=== PATIENT | female | born 1990 | race Caucasian/White ===

== ENCOUNTER 2024-04-28 10:02 | Outpatient (CLI) | payer BC, SELFPAY ==
[2024-04-28 10:30] LABS: Basophils # 0.1 K/mm3 (0-0.2); Basophils % 0.6 % (0.1-2.0); Eosinophils # 0.4 K/mm3 (0.0-0.4); Eosinophils % 3.8 % (0.1-12.0); Hematocrit 43.6 % (37.0-47.0); Hemoglobin 14.7 g/dL (12.2-16.2); Lymphocytes # 3.9 K/mm3 (0.7-4.5); Lymphocytes % 39.4 % (10-50); Mean Corpuscular HGB Conc 33.7 g/dL (31.8-35.4); Mean Corpuscular Hemoglobin 30.7 pg (27.0-31.2); Mean Platelet Volume 9.8 fl (7.4-10.4); Monocytes # 0.9 K/mm3 (0.1-1.0); Monocytes % 9.2 % (1.7-9.3); Neutrophils # 4.6 K/mm3 (1.8-7.8); Neutrophils % 46.8 % (37.0-80.0); Platelet Count 313 K/mm3 (142-424); Red Blood Count 4.79 M/mm3 (4.20-5.40); Red Cell Distribution Width 11.8 % (11.5-17.5); White Blood Count 9.9 K/mm3 (4.8-10.8)
[2024-04-28 10:47] LABS: Alanine Aminotransferase 82 U/L (12-78); Albumin Level 4.5 g/dl (3.5-5.0); Albumin/Globulin Ratio 1.4 (1.1-1.8); Alkaline Phosphatase 69 U/L (38-126); Anion Gap 14.5 mEq/L (5-15); Aspartate Amino Transferase 52 U/L (14-36); Bilirubin,Total 0.4 mg/dl (0.2-1.3); Blood Urea Nitrogen 13 mg/dl (7-17); Calcium 9.7 mg/dl (8.4-10.2); Carbon Dioxide 27 mmol/L (22.0-30.0); Chloride 103 mmol/L (98-107); Estimated Glomerular Filt Rate 95 ml/min (>60); GFR (African American) 115 ML/MIN (>60); Globulin 3.2 g/dL (1.3-3.2); Glucose 79 mg/dl (74-100); Potassium 4.5 mmoL/L (3.5-5.1); Sodium 140 mmol/L (136-145); Total Protein,Serum 7.7 g/dl (6.3-8.2)
[2024-04-28 10:52] LABS: C-Reactive Protein 2.2 mg/L (0-4)
[2024-04-28 11:12] LABS: 25-OH Vitamin D, Total 44.9 ng/mL (30-100)
[2024-04-28 11:36] LABS: Vitamin B12 863 pg/mL (239-931)
[2024-04-28 11:46] LABS: Iron 148 ug/dL (37-170)
[2024-04-28 11:54] LABS: Total Iron Binding Capacity 353 ug/dL (265-497)
[2024-04-28 12:22] LABS: Ferritin 52.5 ng/ml (6.24-137)
[2024-04-28 12:56] LABS: Erythrocyte Sedimentation Rate 11 mm/hr (0-20)
[2024-04-30 20:08] LABS: QuantiFERON-TB Gold Plus Negative (Negative)
== END 2024-04-28 23:59 | disposition home or self-care (01) ==
LOC: LAB 10:07
PROVIDERS: PCP Nurse Practitioner Family; Visit Provider Nurse Practitioner Family
DX: K50.90 Crohn's disease, unspecified, without complications (principal); K30 Functional dyspepsia; R14.0 Abdominal distension (gaseous); R10.84 Generalized abdominal pain; R11.0 Nausea
CPT/HCPCS: 36415; 80053; 82306; 82607; 82728; 83540; 83550; 85025; 85651; 86140; 86480

== ENCOUNTER 2024-12-20 16:13 | Outpatient (CLI) | payer BC, SELFPAY ==
--- OUTSIDE RECORDS SUMMARY | 2024-12-20 16:15 | XMS_ITS | Clinical Summary ---
Author Organization [facility] Address [address] [place] [address] Care Team Providers Care Supervisor Mold Shop Name Role Phone Carlie Huitron APRN Primary Care Provider Allergies No known active allergies Medications Amaury, Deandre Pen, 40 MG/0.4ML Pen-injector Kit 4 Active amitriptyline (ELAVIL) 100 MG tablet Take 1 tablet by mouth Daily. 4 Active azelaic acid (AZELEX) 15 % gel 4 Active busPIRone (BUSPAR) 15 MG tablet 4 Active Cyanocobalamin 500 MCG/0.1ML solution 4 Active Diclofenac Potassium,Migrain e, 50 MG pack Take 1 tablet by mouth. 4 Active levocetirizine (XYZAL) 5 MG tablet 4 Active Simpesse 0.15-0.03 &0.01 MG 4 Active nitrofurantoin, macrocrystal-mono hydrate, (MACROBID) 100 MG capsule Take 1 capsule by mouth. Active omeprazole (priLOSEC) 20 MG capsule 4 Active propranolol (INDERAL) 20 MG tablet Take 1 tablet by mouth. 4 Active rizatriptan (MAXALT) 10 MG tablet Take 1 tablet by mouth. 4 Active Wegovy 2.4 MG/0.75ML solution auto-injector 4 Active SUMAtriptan (IMITREX) 100 MG tablet 4 Active promethazine (PHENERGAN) 25 MG tabletIndications :Nausea Take 1 tablet by mouth Every 6 (Six) Hours As Needed for Nausea or Vomiting. 30 tablet 1 4 Active Motegrity 2 MG tabletIndications :Chronic constipation Take 1 tablet by mouth Daily. 30 tablet 11 4 Active Active Problems No known active problems Family History Medical History Relation Name Comments Alcohol abuse Father Cirrhosis Father Colon polyps Father Alcohol abuse Maternal Grandfather Pancreatitis Maternal Grandfather Alcohol abuse Paternal Grandfather Relation Name Status Comments Father Alive Maternal Grandfather Alive Paternal Grandfather Social History Tobacco Use Types Packs/Day Years Used Date Smoking Tobacco: Never Smokeless Tobacco: Never Tobacco Cessation:Counseling Given: Not Answered Alcohol Use Standard Drinks/Week Comments Not Currently 0 (1 standard drink = 0.6 oz pur e alcohol) Abuse Screen Answer Date Recorded Unsafe at Home or Work/School Not on file Feels Threatened by Someone? Not on file 12/2022 Does Anyone Keep You from Co ntacting Others or Doint Things Outside the Home? Not on file 01/07/2023 Physical Sign of Abuse Present Not on file 1 Housing Stability Answer Date Recorded Current Living Arrangements Not on file 12/29 Potentially Unsafe Housing Conditions Not on jose e 01/07/2023 Family and Community Support Answer Dayne e Recorded Help with Day-to-Day Activities Not on file 01/07/2023 Lonely or Isolated Not on file 01/07/2023 Employment Answer Date Recorded Do you want help finding or keeping work or a chiquita b? Not on file 01/07/2023 Disabilities Answer Date Recorded Concentrating, Remembering, or Making Decisions Difficulty Not on file 01/07/2023 Doing Errands Independently Difficulty Not on fi le 01/07/2023 Education Answer Date Recorded Help with school or training? Not on file Preferred Language Not on file 01/07/2023 Comments Unknown Sex and Gender Information Value Date Recorded Sex Assigned at Not on file Legal Sex Female 1:46 PM EDT Gender Identity Not on file Sexual Orientation Not on file Last Filed Vital Signs Vital Sign Reading Time Taken Comments Blood Pressure - - Pulse - - Temperature - - Respiratory Rate - - Oxygen Saturation - - Inhaled Oxygen Concentration - - Weight 79.2 kg (174 lb 9.6 oz) 12/15/2023 8:34 A M EDT Height 157.5 cm (5' 2 ) 12/15/2023 8:34 AM EDT Body Mass Index 31.93 12/15/2023 8:34 AM EDT Plan of Treatment Health Maintenance Due Date Last Done Comments Annual Gynecologic Pelvic and Breast Exam 1989 PAP SMEAR 2010 ANNUAL PHYSICAL 12/15/2023 HEPATITIS C SCREENING 12/15/2023 INFLUENZA VACCINE 10/29/2024 12/13/2023, , 01/07/2022, Additional history exists TDAP/TD VACCINES (2 - Td or Tdap) 05/28/2025 05/29/2015 Pneumococcal Vaccine 0-49 Aged Out No longer eligible based on patient's age to complete this topic Insurance PPO Care Teams Supervisor Mold Shop Relationship Specialty Start Date End Date Carlie Huitron APRN [address] [place] [address] PCP - General Family Medicine 12/15/23
[2024-12-20 17:51] LABS: Iron 88 ug/dL (37-170)
[2024-12-20 18:00] LABS: Total Iron Binding Capacity 307 ug/dL (265-497)
[2024-12-20 18:10] LABS: 25-OH Vitamin D, Total 60.2 ng/mL (30-100)
[2024-12-20 18:27] LABS: Ferritin 46.6 ng/ml (6.24-137)
[2024-12-20 19:23] LABS: C-Reactive Protein 2.4 mg/L (0-4)
[2024-12-20 20:10] LABS: Vitamin B12 > 1000 pg/mL (239-931)
== END 2024-12-20 23:59 | disposition home or self-care (01) ==
LOC: LAB 16:14
PROVIDERS: PCP Nurse Practitioner Family; Visit Provider Nurse Practitioner Family
DX: K50.90 Crohn's disease, unspecified, without complications (principal)
CPT/HCPCS: 80145; 82306; 82397; 82607; 82728; 83540; 83550; 85651; 86140; 86480

== ENCOUNTER 2024-12-23 09:04 | Outpatient (CLI) | payer BC, SELFPAY ==
--- OUTSIDE RECORDS SUMMARY | 2024-12-23 09:06 | XMS_ITS | Encounter Summary ---
Author Organization [employer] ([place], [place], [place], [place]) Address [address] [place] [address] Care Team Providers Care Mission Systems Engineer Name Role Phone Carlie Huitron APRN Primary Care Provider [phone] Carlie Huitron APRN Primary Care Provider [phone] [phone] Reason for Visit * Reason Comments Medication Refill Encounter Details Date Type Department Care Team (Late st Contact Info) Description 07/25/2022 Refill [facility] Neurology - [facility] [address] [facility] [address] [place] [address] Karma Skelton MD [address] [facility] [address] [place] [address] Social History Tobacco Use Types Packs/Day Years Used Date Smoking Tobacco: Never Smokeless Tobacco: Never Alcohol Use Standard Drinks/Week Comments Not Currently 0 (1 standard drink = 0.6 oz pur e alcohol) Comments Unknown Sex and Gender Information Value Date Recorded Sex Assigned at Not on file Legal Sex Female 2:38 PM CDT Gender Identity Not on file Sexual Orientation Not on file COVID-19 Exposure Response Date Recorded In the last 10 days, have yo u been in contact with someone who was confirmed or suspected to have Coronavirus/COVID-19? No / Unsure 07/02/2022 4:58 PM EDT documented as of this encounter Plan of Treatment Not on file documented as of this encounter Visit Diagnoses Not on filedocumented in this encounter Care Teams Mission Systems Engineer Relationship Specialty Start Date End Date Carlie Huitron APRN [address] [facility] [address] [place] [address] PCP - General Nurse Practitioner 01/29/22 08/11/23 Carlie Huitron APRN [address] [facility] [address] [place] [address] PCP - General Nurse Practitioner 12/20/23 documented as of this encounter
--- OUTSIDE RECORDS SUMMARY | 2024-12-23 09:06 | XMS_ITS | Encounter Summary ---
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 Social History Tobacco Use Types Packs/Day Years Used Date Smoking Tobacco: Never Smokeless Tobacco: Never Alcohol Use Standard Drinks/Week Comments Not Currently 0 (1 standard drink = 0.6 oz pur e alcohol) Family and Community Support Answer Dayne e Recorded Help with Day to Day Activities Not on file 04/09/2023 Feeling Lonely or Isolated Not on file 04/09 Educational Attainment Answer Date Yossi rded Speak language other than Vincentian at home Not on file 04/09/2023 Want help with school or training Not on file 04/09/2023 Substance Use Answer Date Recorded Used prescription meds for non-medical reasons N ot on file 04/09/2023 Used illegal drugs past 12 months Not on file 04/09/2023 Comments Unknown Sex and Gender Information Value Date Recorded Sex Assigned at Not on file Legal Sex Female 2:38 PM CDT Gender Identity Not on file Sexual Orientation Not on file documented as of this encounter Plan of Treatment Not on file documented as of this encounter Visit Diagnoses Diagnosis Intractable chronic migraine without aura with status migrainosus Chronic migraine without aura, with intractable migraine, so stated, with status migrainosus documented in this encounter Care Teams Administrative Asst Relationship Specialty Start Date End Date Carlie Huitron, SCOREKEEPER PCP - General Nurse Practitioner 12/20/23 documented as of this encounter
--- OUTSIDE RECORDS SUMMARY | 2024-12-23 09:06 | XMS_ITS | Encounter Summary ---
Author Organization [employer] ([place], [place], [place], [place]) Address [address] [place] [address] Care Team Providers Care Stage Settings Painter Name Role Phone Carlie Huitron APRN Primary Care Provider [phone] [phone] Carlie Huitron APRN Primary Care Provider [phone] [phone] Reason for Referral * CAT Scan (Routine) - Closed Specialty Diagnoses / Procedures Referred By Amrik vu Referred To Contact Radiology Diagnoses Abdominal pain, unspecified abdominal location Procedures CT ABDOMEN/PELVIS WITH IV CONTRAST Standard Protocol Makayla Souza APRN [address] [facility] [address] [place] [id number] Phone: tel: fax: Referral ID Status Reason Start Date Expiration Date Visits Re quested Visits Authorized [id number] Closed 04/08/2022 10/05/2022 1 1 Encounter Details Date Type Department Care Team (Late st Contact Info) Description 04/08/2022 Outside Orders [facility] Central Scheduling [address] [place] [id number] Makayla Souza APRN [address] [address] Abdominal pain, unspecified abdominal location (Primary Dx) Social History Tobacco Use Types Packs/Day Years [...] on file documented as of this encounter Results * CT ABDOMEN/PELVIS WITH IV CONTRAST Standard Protocol (04/09/2022 9:58 AM EST) Anatomical Region Laterality Modality Abdomen, Pelvis Computed Tomogra phy (CT) 04/09/2022 12:0 0 PM EST Impressions 04/09/2022 12:08 PM EST No acute intra-abdominal process. Images reviewed, interpreted, and dictated by Dr. Tarun Freeman. Transcribed by Candice Brown PA-C. Narrative 04/09/2022 12:[address] SCAN OF THE ABDOMEN AND PELVIS WITH CONTRAST 04/09/2022 9:58 AM HISTORY: Right abdominal pain, Crohn's disease. COMPARISON: None. PROCEDURE: The patient was injected with IV contrast. Oral contrast was administered. Axial images were obtained from the lung bases to the pubic symphysis by computed tomography. This study was performed with techniques to keep radiation doses as low as reasonably achievable, (ALARA). Individualized dose reduction techniques using automated exposure control or adjustment of mA and/or kV according to the patient size were employed. FINDINGS: ABDOMEN: The lung bases are clear. The heart is normal in size. The liver is normal. The gallbladder is unremarkable. The spleen is unremarkable. No adrenal mass is present. The pancreas is normal. The kidneys are normal. The aorta is normal in caliber. There is no free fluid or adenopathy. PELVIS: The appendix is not identified. There is diverticulosis of the sigmoid colon. The uterus is uterus and the left. The urinary bladder is unremarkable. There is no significant free fluid or adenopathy. Procedure Note Odell Freeman MD - 04/09/2022 CT SCAN OF THE ABDOMEN AND PELVIS WITH CONTRAST 04/09/2022 9:58 AM HISTORY: Right abdominal pain, Crohn's disease. COMPARISON: None. PROCEDURE: The patient was injected with IV contrast. Oral contrast was administered. Axial images were obtained from the lung bases to the pubic symphysis by computed tomography. This study was performed with techniques to keep radiation doses as low as reasonably achievable, (ALARA). Individualized dose reduction techniques using automated exposure control or adjustment of mA and/or kV according to the patient size were employed. FINDINGS: ABDOMEN: The lung bases are clear. The heart is normal in size. The liver is normal. The gallbladder is unremarkable. The spleen is unremarkable. No adrenal mass is present. The pancreas is normal. The kidneys are normal. The aorta is normal in caliber. There is no free fluid or adenopathy. PELVIS: The appendix is not identified. There is diverticulosis of the sigmoid colon. The uterus is uterus and the left. The urinary bladder is unremarkable. There is no significant free fluid or adenopathy. IMPRESSION: No acute intra-abdominal process. Images reviewed, interpreted, and dictated by Dr. Tarun Freeman. Transcribed by Candice Brown PA-C. Makayla Souza APRN IMG CT ORDERABLES Final Resu lt documented in this encounter Visit Diagnoses Diagnosis Abdominal pain, unspecified abdominal location- Primary Abdominal pain, unspecified abdominal location documented in this encounter Care Teams Stage Settings Painter Relationship Specialty Start Date End Date Carlie Huitron APRN [address] [facility] [address] [place] [address] PCP - General Nurse Practitioner 01/29/22 08/11/23 Carlie Huitron APRN [address] [facility] [address] [place] [address] PCP - General Nurse Practitioner 12/20/23 documented as of this encounter
--- OUTSIDE RECORDS SUMMARY | 2024-12-23 09:06 | XMS_ITS | Encounter Summary ---
Author Organization [employer] ([place], [place], [place], [place]) Address [address] [place] [address] Care Team Providers Care Manager Retention Name Role Phone Carlie Huitron APRN Primary Care Provider [phone] Reason for Visit * Reason Comments Medication Refill Encounter Details Date Type Department Care Team (Late st Contact Info) Description 04/26/2024 Refill [facility] Neurology - [facility] [address] [facility] [address] [place] [address] Karma Skelton MD [address] [facility] [address] [place] [address] Intractable chronic migraine without aura [...] Date Yossi rded Speak language other than Solomon Islander at home Not on file 04/09/2023 Want [...] migrainosus documented in this encounter Care Teams Manager Retention Relationship Specialty Start Date End Date Carlie Huitron, BILLBOARD POSTER HELPER PCP - General Nurse Practitioner 12/20/23 documented as of this encounter
--- OUTSIDE RECORDS SUMMARY | 2024-12-23 09:06 | XMS_ITS | Encounter Summary ---
Author Organization [employer] ([place], [place], [place], [place]) Address [address] [place] [address] Care Team Providers Care Jacquard Card Lacer Name Role Phone Carlie Huitron APRN Primary Care Provider [phone] [phone] Encounter Details Date Type Department Care Team (Latest Contact Info) Description 12/20/2023 Outside Orders [facility] Admitting [address] [place] [address] [facility], Provider Not In The System, [place] [address] Crohn's disease without complication, unspecified gastrointestinal tract location (HCC) (Primary Dx) Social History Tobacco Use Types [...] Date Yossi rded Speak language other than Ecuadorean at home Not on file 04/09/2023 Want [...] documented as of this encounter Results * Calprotectin, Fecal by Immunoassay(SENDOUT) (12/20/2023 12:48 PM EDT) Calprotectin, Fecal 33 <=49 ug/g 12/24/2023 1:19 PM EDT [facility] Comment: REFERENCE INTERVAL: Calprotectin, Fecal by Immunoassay Less than 50 ug/g.........Normal 50-120 ug/g...............Borderline elevated, test should be re-evaluated in 4-6 weeks. 121 ug/g or greater.......Elevated Performed By: [facility] [address] [place] [address] Senior Research Project Manager: Alfredo Feliciano MD, PhD CLIA Number: [id number] Stool 12/20/2023 12:4 8 PM EDT 12/20/2023 12:51 PM EDT us Provider Not In The System [facility] - GENERAL ORDERABLES Final Result [facility] [address] [place] [address], [facility] [phone] documented in this encounter Visit Diagnoses Diagnosis Crohn's disease without complication, unspecified gastrointestinal tract location (HCC)- Primary documented in this encounter Care Teams Jacquard Card Lacer Relationship Specialty Start Date End Date Carlie Huitron, YOON PCP - General Nurse Practitioner 12/20/23 documented as of this encounter
--- OUTSIDE RECORDS SUMMARY | 2024-12-23 09:06 | XMS_ITS | Referral Summary ---
Author Organization [employer] ([place], [place], [place], [place]) Address [address] [place] [address] Care Team Providers Care Excavating Machine Operator Name Role Phone Carlie Huitron APRN Primary Care Provider [phone] [phone] Allergies No known active allergies Medications adalimumab (HUMIRA,CF, PEN [id number] HS SUBQ) Inject subcutaneously. Active buspirone HCl (BUSPAR ORAL) Take by mouth. A ctive diclofenac potassium (CAMBIA ORAL) Take by mouth. A ctive Motegrity 2 mg Tab Take 2 mg by mouth. 2 Active Lactobac no.41/Bifidobact no.7 (PROBIOTIC-10 ORAL) Take by mouth. Activ e multivitamin per tablet Take 1 tablet by mouth in the morning. Active biotin 10 mg Tab Take by mouth. Active Wegovy 2.4 mg/0.75 mL PnIj Inject subcutaneously. 3 Active nitrofurantoin, macrocrystal-mon ohydrate, (MACROBID) 100 MG capsule Take 1 capsule (100 mg total) by mouth as needed. Active rizatriptan (Maxalt) 10 MG tabletIndication s:Intractable chronic migraine without aura with status migrainosus Take 1 tablet (10 mg total) by mouth as needed (at onset of migraine, may repeat q2h x 1) Do NOT exceed thirty (30) mg in 24 hours.. 9 tablet 6 4 Active omeprazole (PriLOSEC) 10 MG capsule Active atogepant (Qulipta) 60 mg tabIndications:I ntractable chronic migraine without aura with status migrainosus Take 60 mg by mouth daily. 30 tablet 5 4 Active cyanocobalamin, vitamin B-12, (Nascobal) 500 mcg/spray spryIndications: B12 deficiency 1 spray by intraNASAL route once a week. 12 each 3 5 Active levocetirizine (XYZAL) 2.5 mg/5 mL solution Take 5 mLs (2.5 mg total) by mouth every evening. Active diclofenac potassium 50 mg pwpkIndications: Intractable chronic migraine without aura with status migrainosus Take 1 packet by mouth as needed (At onset of migraine, may repeat every 6 hours x 1). 18 packet 11 5 Active propranoloL (INDERAL) 20 MG tabletIndication s:Intractable chronic migraine without aura with status migrainosus TAKE (1) TABLET BY MOUTH TWICE DAILY 180 tablet 1 5 Active atogepant (Qulipta) 60 mg tabIndications:I ntractable chronic migraine without aura with status migrainosus Take 60 mg by mouth daily. 30 tablet 5 5 Active amitriptyline (ELAVIL) 100 MG tabletIndication s:Intractable chronic migraine without aura with status migrainosus Take 1 tablet (100 mg total) by mouth every evening. 90 tablet 1 5 Active Active Problems Problem Noted Date Diagnosed Date Crohn's colitis 04/14/2024 Overview (04/14/2024): 4.6.23 Social History Tobacco Use Types Packs/Day Years [...] Date Yossi rded Speak language other than French at home Not on file 04/09/2023 Want [...] Sign Reading Time Taken Comments Blood Pressure 136/92 12/31/2023 8:59 AM EDT Pulse 94 12/31/2023 8:59 AM EDT Temperature - - Respiratory Rate 19 11/19/2021 1:31 PM EDT Oxygen Saturation - - Inhaled Oxygen Concentration - - Weight 90.7 kg (200 lb) 07/09/2024 8:07 AM EDT Height 157.5 cm (5' 2 ) 12/31/2023 8:59 AM EDT Body Mass Index 36.58 12/31/2023 8:59 AM EDT Plan of Treatment Not on file Insurance BLUE CROSS/BLUE SHIELD Care Teams Excavating Machine Operator Relationship Specialty Start Date End Date Carlie Huitron, YOON PCP - General Nurse Practitioner 12/20/23
--- OUTSIDE RECORDS SUMMARY | 2024-12-23 09:06 | XMS_ITS | Clinical Summary ---
Author Organization [employer] ([place], [place], [place], [place]) Address [address] [place] [address] Care Team Providers Care Associate Professor Of Philosophy Name Role Phone Carlie Huitron APRN Primary Care Provider [phone] [phone] Allergies No known active allergies Medications adalimumab (HUMIRA,CF, PEN [id number] HS SUBQ) Inject subcutaneously. Active buspirone HCl [...] Date Crohn's colitis 04/14/2024 Overview (04/14/2024): 4.6.23 Family History Medical History Relation Name Comments Alcohol abuse Father Michel Gamble Drug abuse Father Michel Gamble Heart disease Father Michel Gamble Alcohol abuse Maternal Grandfather Hakan Stacie Heart disease Maternal Grandfather Hakan Stacie Stroke Maternal Grandfather Hakan Stacie Cancer Maternal Grandmother Mariah Stacie Migraines Mother Sonia [place] Alcohol abuse Paternal Grandfather Kyler Gamble Heart disease Paternal Grandfather Kyler Gamble Stroke Paternal Grandfather Kyler Gamble Heart disease Paternal Grandmother Kasia Tye Relation Name Status Comments Father Michel Gamble Maternal Grandfather Hakan Stacie Maternal Grandmother Mariah Stacie Mother Sonia [place] Paternal Grandfather Kyler Gamble Paternal Grandmother Kasia Gamble Social History Tobacco Use Types Packs/Day Years [...] Date Yossi rded Speak language other than Tristanian at home Not on file 04/09/2023 Want [...] 12/31/2023 8:59 AM EDT Plan of Treatment Health Maintenance Due Date Last Done Comments Depression Screening (12+) 2001 HIV Screening 01/04/2004 Hepatitis C Screening 2007 Lipid Panel 2009 Pap Smear 2010 COVID-19 VACCINE ( - 2023-2 5 season) 2024 Influenza Vaccine (#1) 2024 Tobacco Cessation Counseling and Screening (12+) 12/30/2024 12/31/2023 DTAP/TDAP/TD VACCINES (2 - T d or Tdap) 05/28/2025 05/29/2015 Pneumococcal Vaccine: 0-49 Years Aged Out No longer eligible based on patient's age to complete this topic Insurance BLUE CROSS/BLUE SHIELD Care Teams Associate Professor Of Philosophy Relationship Specialty Start Date End Date Carlie Huitron, CLINICAL RESEARCH DIRECTOR PCP - General Nurse Practitioner 12/20/23
--- OUTSIDE RECORDS SUMMARY | 2024-12-23 09:06 | XMS_ITS | Encounter Summary ---
Author Organization [employer] ([place], [place], [place], [place]) Address [address] [place] [address] Care Team Providers Care Sail Finisher Machine Name Role Phone Carlie Huitron APRN Primary Care Provider [phone] Carlie Huitron APRN Primary Care Provider [phone] [phone] Encounter Details Date Type Department Care Team (Late st Contact Info) Description 07/02/2022 Outside Orders [facility] Admitting [address] [place] [address] Makayla Sozua APRN [address] [facility] [address] [place] [address] Inguinal pain, unspecified laterality (Primary Dx) Social History Tobacco Use Types [...] documented as of this encounter Results * Comprehensive metabolic panel (07/02/2022 5:24 PM EDT) Sodium 136 136 - 145 meq/L 07/02/2022 6:44 PM EDT [facility] Potassium 4.1 3.5 - 5.1 meq/L 07/02/2022 6:44 PM EDT [facility] Chloride 102 98 - 107 meq/L 07/02/2022 6:44 PM EDT [facility] CO2 25 21 - 32 meq/L 07/02/2022 6:44 PM EDT [facility] Calcium 8.8 8.5 - 10.1 mg/dL 07/02/2022 6:44 PM EDT [facility] Glucose 80 70 - 99 mg/dL 07/02/2022 6:44 PM EDT [facility] BUN 17 7 - 18 mg/dL 07/02/2022 6:44 PM EDT [facility] Creatinine 1.03 0.55 - 1.10 mg/dL 07/02/2022 6:44 PM EDT [facility] BUN/Creatinine 17 07/02/2022 6:44 PM EDT [facility] Albumin 3.5 3.4 - 5.0 g/dL 07/02/2022 6:44 PM EDT [facility] Alkaline Phosphatase 67 46 - 116 U/L 07/02/2022 6:44 PM EDT [facility] ALT 60 12 - 78 U/L 07/02/2022 6:44 PM EDT [facility] AST 31 15 - 37 U/L 07/02/2022 6:44 PM EDT [facility] Total Bilirubin 0.2 0.2 - 1.0 mg/dL 07/02/2022 6:44 PM EDT [facility] Protein, Total 8.0 6.4 - 8.2 gm/dL 07/02/2022 6:44 PM EDT [facility] Anion Gap 13 07/02/2022 6:44 PM EDT [facility] A/G Ratio 0.8 07/02/2022 6:44 PM EDT [facility] Globulin 4.5 g/dL 07/02/2022 6:44 PM EDT [facility] Osmolality Calc 272.5 6:44 PM EDT [facility] eGFR (mL/min/1.73m2) >60 >=60 mL/min/1.7 3m2 07/02/2022 6:44 PM EDT [facility] Comment:ESTIMATED GFR IS NOT ACCURATE CREATININE CLEARANCE IN PREDICTING GLOMERULAR FILTRATION RATE. ESTIMATED GFR IS NOT APPLICABLE FOR DIALYSIS PATIENTS. Blood Venipuncture / Unknown 07/02/2022 5:24 PM EDT 07/02/2022 5:39 PM EDT Narrative [facility] - 07/02/2022 6:44 PM EDT As of 06-14-2022 date, reported eGFR is based on the CKD-EPI 2020 equation that does not use a race coefficient. Laboratory Report for eGFR of 45-59 mL/min/1.73m2- For eGFR of 45-59 mL/min/1.73m2, NKF KDOQI and KDIGO guidelines recommend one - time confirmation of eGFR calculated using both creatinine and cystatin C. Cystatin C is recommended in the outpatient patient setting for purposes of confirming chronic kidney disease, rather than in the acute setting for acute kidney injury or failure. Makayla Souza APRN LAB BLOOD ORDERABLES Final R esult [facility] [address] [place] [address], [facility] [phone] * Vitamin D, 25-Hydroxy (07/02/2022 5:24 PM EDT) Vitamin D 25-Hydroxy 54.9 30 - 100, >100 Toxic ng/mL 07/02/2022 6:44 PM EDT [facility] Blood Venipuncture / Unknown 07/02/2022 5:24 PM EDT 07/02/2022 5:39 PM EDT Narrative [facility] - 07/02/2022 6:44 PM EDT <20 Deficient 20 to 29 Insufficient 30 to 100 Sufficient >100 Toxic Biotin supplements can cause clinically significant incorrect lab results. The FDA has seen an increase in the number of adverse events related to biotin interference with lab tests. Makayla Souza APRN LAB BLOOD ORDERABLES Final R esult Performing Organization Address City/[facility]/ZIP Co de Phone Number [facility] [address] [place] [address] * Vitamin B12 (07/02/2022 5:24 PM EDT) Vitamin B12 563 193 - 986 pg/mL 07/02/2022 6:44 PM EDT [facility] Blood Venipuncture / Unknown 07/02/2022 5:24 PM EDT 07/02/2022 5:39 PM EDT Makayla Souza [facility] LAB BLOOD ORDERABLES Final R esult Performing Organization Address [facility] Co de Phone Number [facility] [address] [place] [address] * (ABNORMAL) Sedimentation rate (07/02/2022 5:24 PM EDT) Pathologist [facility] Sed Rate 43(H) 0 - 20 mm/HR 07/02/2022 6:58 PM EDT [facility] Blood Venipuncture / Unknown 07/02/2022 5:24 PM EDT 07/02/2022 5:39 PM EDT Makayla Souza [facility] LAB BLOOD ORDERABLES Final R esult Performing Organization Address City/[facility] Co de Phone Number [facility] [address] [place] [address] * Iron and TIBC (07/02/2022 5:24 PM EDT) Iron 69.0 50.0 - 175.0 ug/dL 07/02/2022 6:11 PM EDT [facility] TIBC 355 250 - 450 ug/dL 07/02/2022 6:11 PM EDT [facility] % Saturation 19 % 07/02/2022 6:11 PM EDT [facility] UIBC 286 07/02/2022 6:11 PM EDT [facility] Blood Venipuncture / Unknown 07/02/2022 5:24 PM EDT 07/02/2022 5:39 PM EDT us Makayla Harley RETAIL BUSINESS DEVELOPMENT MANAGER LAB BLOOD ORDERABLES Final R esult [facility] [address] [phone] * Ferritin (07/02/2022 5:24 PM EDT) Ferritin 66.00 8.00 - 388.00 ng/mL 07/02/2022 6:44 PM EDT [facility] Blood Venipuncture / Unknown 07/02/2022 5:24 PM EDT 07/02/2022 5:39 PM EDT Makayla Harley RETAIL BUSINESS DEVELOPMENT MANAGER LAB BLOOD ORDERABLES Final R esult [facility] [address] [phone] * C-Reactive Protein (07/02/2022 5:24 PM EDT) CRP 0.60 0.20 - 0.90 mg/dL 07/02/2022 6:44 PM EDT [facility] Blood Venipuncture / Unknown 07/02/2022 5:24 PM EDT 07/02/2022 5:39 PM EDT Makayla Harley RETAIL BUSINESS DEVELOPMENT MANAGER LAB BLOOD ORDERABLES Final R esult [facility] [address] [place] [address], [facility] [phone] * (ABNORMAL) CBC with automated diff (07/02/2022 5:24 PM EDT) WBC 11.7(H) 4.8 - 10.8 K/ L 07/02/2022 5:47 PM EDT [facility] RBC 4.57 3.50 - 5.20 M/ L 07/02/2022 5:47 PM EDT [facility] Hemoglobin 13.6 11.7 - 15.8 GM/DL 07/02/2022 5:47 PM EDT [facility] Hematocrit 41.2 35.0 - 47.0 % 07/02/2022 5:47 PM EDT [facility] MCV 90 81 - 101 fL 07/02/2022 5:47 PM EDT [facility] MCH 29.8 27.0 - 34.0 pg 07/02/2022 5:47 PM EDT [facility] MCHC 33.0 32.0 - 36.0 GM/DL 07/02/2022 5:47 PM EDT [facility] RDW 11.8 11.5 - 14.5 % 07/02/2022 5:47 PM EDT [facility] Platelets 295 150 - 400 K/CU MM 07/02/2022 5:47 PM EDT [facility] MPV 10.4 9.4 - 12.4 fL 07/02/2022 5:47 PM EDT [facility] Nucleated Red Blood Cell 0.0 0 - 0.2 % 07/02/2022 5:47 PM EDT [facility] % Neutros 46 37 - 80 % 07/02/2022 5:47 PM EDT [facility] % Lymphs 42 10 - 50 % 07/02/2022 5:47 PM EDT [facility] % Monos 8 5 - 13 % 07/02/2022 5:47 PM EDT [facility] % Eos 4 0 - 7 % 07/02/2022 5:47 PM EDT [facility] % Baso 1 0 - 3 % 07/02/2022 5:47 PM EDT [facility] NRBC Absolute 0.00 0 - 0.12 K/ul 07/02/2022 5:47 PM EDT [facility] # Neutros 5.30 2.00 - 6.90 K/ L 07/02/2022 5:47 PM EDT [facility] # Lymphs 4.89(H) 0.60 - 3.40 K/ L 07/02/2022 5:47 PM EDT [facility] # Monos 0.91(H) 0.00 - 0.90 K/ L 07/02/2022 5:47 PM EDT [facility] # Eos 0.47 0.00 - 0.70 K/ L 07/02/2022 5:47 PM EDT [facility] # Baso 0.06 0.00 - 0.20 K/ L 07/02/2022 5:47 PM EDT [facility] Immature Granulocytes-Re lative 0.30(H) 0.00 - 0.00 % 07/02/2022 5:47 PM EDT [facility] # IG 0.03(H) 0.00 - 0.00 K/uL 07/02/2022 5:47 PM EDT [facility] Blood Venipuncture / Unknown 07/02/2022 5:24 PM EDT 07/02/2022 5:39 PM EDT Narrative [facility] - 07/02/2022 5:47 PM EDT When CBC w/ Auto Diff is ordered the lab will add a Manual Differential as a quality check at no additional charge if: Lymphocytes greater than seventy five percent with normal or increased WBC Monocytes greater than Fifteen percent Basophil greater than four percent Bands >10% or several immature myeloids are seen on scan Blast? Flag noted Atypical Lymph flag noted us Makayla Souza APRN LAB BLOOD ORDERABLES Final R esult [facility] [address] [place], [place] [id number] [place] [address] documented in this encounter Visit Diagnoses Diagnosis Inguinal pain, unspecified laterality- Primary documented in this encounter Care Teams Sail Finisher Machine Relationship Specialty Start Date End Date Carlie Huitron APRN [address] [place] [address] PCP - General Nurse Practitioner 01/29/22 08/11/23 Carlie Hiutron APRN [address] [place] [address] PCP - General Nurse Practitioner 12/20/23 documented as of this encounter
--- OUTSIDE RECORDS SUMMARY | 2024-12-23 09:06 | XMS_ITS | Encounter Summary ---
Author Organization [employer] ([place], [place], [place], [place]) Address [address] [place] [address] Care Team Providers Care Visual Education Teacher Name Role Phone Carlie Huitron APRN Primary Care Provider [phone] Carlie Huitron APRN Primary Care Provider [phone] Encounter Details Date Type Department Care Team (Latest Contact Info) Description 01/29/2022 Outside Orders [facility] Admitting [address] [place] [address] Makayla Souza APRN [address] [facility] [address] [place] [address] Crohn's disease with complication, unspecified gastrointestinal tract location (HCC) (Primary [...] on file documented as of this encounter Procedures Procedure Name Priority Date/Time Associated Diagnosis Comments C-REACTIVE PROTEIN Routine 01/29/2022 5: 26 PM EDT Crohn's disease with complication, unspecified gastrointestinal tract location (HCC) VITAMIN D, 25-HYDROXY Routine 01/29/2022 5:26 PM EDT Crohn's disease with complication, unspecified gastrointestinal tract location (HCC) IRON, SERUM Routine 01/29/2022 5:26 PM EDT Crohn's disease with complication, unspecified gastrointestinal tract location (HCC) VITAMIN B12 Routine 01/29/2022 5:26 PM EDT Crohn's disease with complication, unspecified gastrointestinal tract location (HCC) COMPREHENSIVE METABOLIC PANEL Routine 01/29/2022 5:26 PM EDT Crohn's disease with complication, unspecified gastrointestinal tract location (HCC) SEDIMENTATION RATE Routine 01/29/2022 5: 25 PM EDT Crohn's disease with complication, unspecified gastrointestinal tract location (HCC) documented in this encounter Results * (ABNORMAL) Comprehensive metabolic panel (01/29/2022 5:26 PM EDT) Sodium 137 136 - 145 meq/L 01/29/2022 10:19 PM EDT [facility] Potassium 3.6 3.5 - 5.1 meq/L 01/29/2022 10:19 PM EDT [facility] Chloride 104 98 - 107 meq/L 01/29/2022 10:19 PM EDT [facility] CO2 23 21 - 32 meq/L 01/29/2022 10:19 PM EDT [facility] Calcium 8.8 8.5 - 10.1 mg/dL 01/29/2022 10:19 PM EDT [facility] Glucose 138(H) 70 - 99 mg/dL 01/29/2022 10:19 PM EDT [facility] BUN 8 7 - 18 mg/dL 01/29/2022 10:19 PM EDT [facility] Creatinine 0.85 0.55 - 1.10 mg/dL 01/29/2022 10:19 PM EDT [facility] BUN/Creatinine 9 01/29/2022 10:19 PM EDT [facility] Albumin 3.6 3.4 - 5.0 g/dL 01/29/2022 10:19 PM EDT [facility] Alkaline Phosphatase 69 46 - 116 U/L 01/29/2022 10:19 PM EDT [facility] ALT 45 12 - 78 U/L 01/29/2022 10:19 PM EDT [facility] AST 27 15 - 37 U/L 01/29/2022 10:19 PM EDT [facility] Total Bilirubin 0.2 0.2 - 1.0 mg/dL 01/29/2022 10:19 PM EDT [facility] Protein, Total 7.7 6.4 - 8.2 gm/dL 01/29/2022 10:19 PM EDT [facility] Anion Gap 14 01/29/2022 10:19 PM EDT [facility] A/G Ratio 0.9 01/29/2022 10:19 PM EDT [facility] Globulin 4.1 g/dL 01/29/2022 10:19 PM EDT [facility] Osmolality Calc 274.3 2 10:19 PM EDT [facility] eGFR (mL/min/1.73m2) >60 >=60 mL/min/1.7 3m2 01/29/2022 10:19 PM EDT [facility] Comment:ESTIMATED GFR IS NOT ACCURATE CREATININE CLEARANCE IN PREDICTING GLOMERULAR FILTRATION RATE. ESTIMATED GFR IS NOT APPLICABLE FOR DIALYSIS PATIENTS. eGFR Non (mL/min/1.73m2) >60 >=60 mL/min/1.7 3m2 01/29/2022 10:19 PM EDT [facility] Comment:ESTIMATED GFR IS NOT ACCURATE CREATININE CLEARANCE IN PREDICTING GLOMERULAR FILTRATION RATE. ESTIMATED GFR IS NOT APPLICABLE FOR DIALYSIS PATIENTS. Blood Venipuncture / Unknown 01/29/2022 5:26 PM EDT 01/29/2022 5:26 PM EDT us Makayla Souza FIRE PRODUCTION OPERATOR LAB BLOOD ORDERABLES Final R esult [facility] [address] [place] [address] * Vitamin D, 25-Hydroxy (01/29/2022 5:26 PM EDT) Vitamin D 25-Hydroxy 61.1 30 - 100, >100 Toxic ng/mL 01/29/2022 10:42 PM EDT [facility] Blood Venipuncture / Unknown 01/29/2022 5:26 PM EDT 01/29/2022 5:26 PM EDT Narrative [facility] - 01/29/2022 10:42 PM EDT <20 Deficient 20 to 29 Insufficient 30 to 100 Sufficient >100 Toxic Biotin supplements can cause clinically significant incorrect lab results. The FDA has seen an increase in the number of adverse events related to biotin interference with lab tests. Makayla Souza APRN LAB BLOOD ORDERABLES Final R esult [facility] [address] [place] [address] * Vitamin B12 (01/29/2022 5:26 PM EDT) Pathologist [facility] Vitamin B12 287 193 - 986 pg/mL 01/29/2022 11:24 PM EDT [facility] Blood Venipuncture / Unknown 01/29/2022 5:26 PM EDT 01/29/2022 5:26 PM EDT Makayla Souza [facility] LAB BLOOD ORDERABLES Final R esult [facility] [address] [place] [address] * Iron, serum (01/29/2022 5:26 PM EDT) Iron 61.0 50.0 - 175.0 ug/dL 01/29/2022 10:42 PM EDT [facility] Blood Venipuncture / Unknown 01/29/2022 5:26 PM EDT 01/29/2022 5:26 PM EDT Makayla Harley [employer]EN[employer] LAB BLOOD ORDERABLES Final R esult [facility] [address] [place] [address] * C-Reactive Protein (01/29/2022 5:26 PM EDT) CRP 0.60 0.20 - 0.90 mg/dL 01/29/2022 10:19 PM EDT [facility] Blood Venipuncture / Unknown 01/29/2022 5:26 PM EDT 01/29/2022 5:26 PM EDT Makayla Harley [employer] LAB BLOOD ORDERABLES Final R esult [facility] [address] [place] [address] * Sedimentation rate (01/29/2022 5:25 PM EDT) Sed Rate 9 0 - 20 mm/HR 01/29/2022 11:15 PM EDT [facility] Hematocrit 42.1 % 01/29/2022 11:15 PM EDT [facility] Blood Venipuncture / Unknown 01/29/2022 5:25 PM EDT 01/29/2022 5:26 PM EDT Makayla Harley [employer] LAB BLOOD ORDERABLES Final R esult [facility] [address] [place] [address] documented in this encounter Visit Diagnoses Diagnosis Crohn's disease with complication, unspecified gastrointestinal tract location (HCC)- Primary documented in this encounter Care Teams Visual Education Teacher Relationship Specialty Start Date End Date Carlie Huitron, YOON [address] [facility] [address] [place] [address] PCP - General Nurse Practitioner 01/29/22 08/11/23 Carlie Huitron APRN [address] [facility] [address] [place] [address] PCP - General Nurse Practitioner 12/20/23 documented as of this encounter
--- OUTSIDE RECORDS SUMMARY | 2024-12-23 09:06 | XMS_ITS | Encounter Summary ---
Author Organization [employer] ([place], [place], [place], [place]) Address [address] [place] [address] Care Team Providers Care Price Checker Name Role Phone Carlie Huitron APRN Primary Care Provider [phone] Carlie Huitron APRN Primary Care Provider [phone] Reason for Visit * Reason Comments Medication Refill Encounter Details Date Type Department Care Team (Late st Contact Info) Description 06/16/2023 Refill [facility] Neurology - [facility] [place] [address] [facility] [address] [place] [address] Karma Skelton MD [address] [facility] [address] [place] [address] 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
--- OUTSIDE RECORDS SUMMARY | 2024-12-23 09:06 | XMS_ITS | Clinical Summary ---
Author Organization [facility] Address [address] [place] [address] Care Team Providers Care Letter Of Credit Clerk Name Role Phone Carlie Huitron APRN Primary [...] complete this topic Insurance PPO Care Teams Letter Of Credit Clerk Relationship Specialty Start Date End Date Carlie Huitron APRN [address] [place] [address] PCP - General Family Medicine 12/15/23
--- OUTSIDE RECORDS SUMMARY | 2024-12-23 09:06 | XMS_ITS | Encounter Summary ---
Author Organization [employer] ([place], [place], [place], [place]) Address [address] [place] [address] Care Team Providers Care Piping Engineer Name Role Phone Carlie Huitron APRN Primary Care Provider [phone] Encounter Details Date Type Department Care Team (Latest Contact Info) Description 09/09/2024 Outside Orders [facility] Admitting [address] [place] [address] Makayla Souza APRN [address] [facility] [address] [place] [address] Crohn's disease without complication, unspecified gastrointestinal tract location (HCC) (Primary Dx) Social History Tobacco Use Types Packs/Day Years Used Date Smoking Tobacco: Never Smokeless Tobacco: Never Alcohol Use Standard Drinks/Week Comments Not Currently 0 (1 standard drink = 0.6 oz pur e alcohol) Family and Community Support Answer Dayen e Recorded Help with Day to Day Activities Not on file 04/09/2023 Feeling Lonely or Isolated Not on file 04/09 Educational Attainment Answer Date Yossi rded Speak language other than Zambian at home Not on file 04/09/2023 Want [...] documented as of this encounter Results * C-Reactive Protein (09/09/2024 5:43 PM EDT) CRP 0.07 0.05 - 0.25 mg/dL 09/09/2024 6:56 PM EDT [facility] Blood Venipuncture / Unknown 09/09/2024 5:43 PM EDT 09/09/2024 6:01 PM EDT Makayla Souza [employer] LAB BLOOD ORDERABLES Final R esult [facility] [address] [place] [address] * Vitamin B12 (09/09/2024 5:43 PM EDT) Vitamin B12 560 193 - 986 pg/mL 09/09/2024 6:56 PM EDT [facility] Blood Venipuncture / Unknown 09/09/2024 5:43 PM EDT 09/09/2024 6:01 PM EDT Makayla Harley [employer] LAB BLOOD ORDERABLES Final R esult [facility] [address] [place] [address] * Iron and TIBC (09/09/2024 5:43 PM EDT) Iron 79 50.0 - 175.0 ug/dL 09/09/2024 6:34 PM EDT [facility] TIBC 318 250 - 450 ug/dL 09/09/2024 6:34 PM EDT [facility] % Saturation 25 % 09/09/2024 6:34 PM EDT [facility] UIBC 239 09/09/2024 6:34 PM EDT [facility] Blood Venipuncture / Unknown 09/09/2024 5:43 PM EDT 09/09/2024 6:00 PM EDT Makayla Harley [employer] LAB BLOOD ORDERABLES Final R esult Performing Organization Address City/[facility]/ZIP Co de Phone Number [facility] [address] [place] [address] * Ferritin (09/09/2024 5:43 PM EDT) Pathologist [facility] Ferritin 85.00 8.00 - 388.00 ng/mL 09/09/2024 6:56 PM EDT [facility] Blood Venipuncture / Unknown 09/09/2024 5:43 PM EDT 09/09/2024 6:01 PM EDT Makayla Harley [employer] LAB BLOOD ORDERABLES Final R [facility] Performing Organization Address City/[facility]/ZIP Co de Phone Number [facility] [address] [place] [address] * (ABNORMAL) CBC with automated diff (09/09/2024 5:43 PM EDT) Pathologist [facility] WBC 11.9(H) 4.8 - 10.8 K/ L 09/09/2024 6:22 PM EDT [facility] RBC 4.76 3.50 - 5.20 M/ L 09/09/2024 6:22 PM EDT [facility] Hemoglobin 14.3 11.7 - 15.8 GM/DL 09/09/2024 6:22 PM EDT [facility] Hematocrit 43.0 35.0 - 47.0 % 09/09/2024 6:22 PM EDT [facility] MCV 90 81 - 101 fL 09/09/2024 6:22 PM EDT [facility] MCH 30.0 27.0 - 34.0 pg 09/09/2024 6:22 PM EDT [facility] MCHC 33.3 32.0 - 36.0 GM/DL 09/09/2024 6:22 PM EDT [facility] RDW 11.6 11.5 - 14.5 % 09/09/2024 6:22 PM EDT [facility] Platelets 329 150 - 400 K/CU MM 09/09/2024 6:22 PM EDT [facility] MPV 9.9 9.4 - 12.4 fL 09/09/2024 6:22 PM EDT [facility] Nucleated Red Blood Cell 0.0 0 - 0.2 % 09/09/2024 6:22 PM EDT [facility] NRBC Absolute <0.01 0 - 0.012 K/ul 09/09/2024 6:22 PM EDT [facility] Blood Venipuncture / Unknown 09/09/2024 5:43 PM EDT 09/09/2024 6:00 PM EDT Narrative [facility] - 09/09/2024 6:22 PM EDT When CBC w/ Auto Diff [...] APRN LAB BLOOD ORDERABLES Final R esult [facility] [address] [place] [address] * (ABNORMAL) Comprehensive metabolic panel (09/09/2024 5:43 PM EDT) Sodium 133(L) 136 - 145 meq/L 09/09/2024 6:56 PM EDT [facility] Potassium 4.0 3.5 - 5.1 meq/L 09/09/2024 6:56 PM EDT [facility] Chloride 100 98 - 107 meq/L 09/09/2024 6:56 PM EDT [facility] CO2 29 21 - 32 meq/L 09/09/2024 6:56 PM EDT [facility] Calcium 9.3 8.5 - 10.1 mg/dL 09/09/2024 6:56 PM EDT [facility] Glucose 80 70 - 99 mg/dL 09/09/2024 6:56 PM EDT [facility] BUN 8 7 - 18 mg/dL 09/09/2024 6:56 PM EDT [facility] Creatinine 0.87 0.55 - 1.10 mg/dL 09/09/2024 6:56 PM EDT [facility] BUN/Creatinine 9 09/09/2024 6:56 PM EDT [facility] Albumin 3.8 3.4 - 5.0 g/dL 09/09/2024 6:56 PM EDT [facility] Alkaline Phosphatase 89 46 - 116 U/L 09/09/2024 6:56 PM EDT [facility] ALT 62 12 - 78 U/L 09/09/2024 6:56 PM EDT [facility] AST 35 15 - 37 U/L 09/09/2024 6:56 PM EDT [facility] Total Bilirubin 0.5 0.2 - 1.0 mg/dL 09/09/2024 6:56 PM EDT [facility] Protein, Total 8.1 6.4 - 8.2 gm/dL 09/09/2024 6:56 PM EDT [facility] Anion Gap 8(L) 11 - 22 09/09/2024 6:56 PM EDT [facility] A/G Ratio 0.9 09/09/2024 6:56 PM EDT [facility] Globulin 4.3 g/dL 09/09/2024 6:56 PM EDT [facility] Osmolality Calc 263.7 mOsm/kg 6:56 PM EDT [facility] eGFR (mL/min/1.73m2) >60 >=60 mL/min/1.7 3m2 09/09/2024 6:56 PM EDT [facility] Comment:ESTIMATED GFR IS NOT ACCURATE CREATININE CLEARANCE IN PREDICTING GLOMERULAR FILTRATION RATE. ESTIMATED GFR IS NOT APPLICABLE FOR DIALYSIS PATIENTS. Blood Venipuncture / Unknown 09/09/2024 5:43 PM EDT 09/09/2024 6:01 PM EDT Makayla Souza [employer] LAB BLOOD ORDERABLES Final R esult [facility] [address] [place] [address] * Vitamin D, 25-Hydroxy (09/09/2024 5:43 PM EDT) Vitamin D 25-Hydroxy 58.2 30 - 100, >100 Toxic ng/mL 09/09/2024 7:00 PM EDT [facility] Blood Venipuncture / Unknown 09/09/2024 5:43 PM EDT 09/09/2024 6:01 PM EDT Makaylazain Souza [facility] LAB BLOOD ORDERABLES Final R esult Performing Organization Address City/[facility]/ZIP Co de Phone Number [facility] [address] [place] [address] documented in this encounter Visit Diagnoses Diagnosis Crohn's disease without complication, unspecified gastrointestinal tract location (HCC)- Primary documented in this encounter Care Teams Piping Engineer Relationship Specialty Start Date End Date Carlie Huitron APRN PCP - General Nurse Practitioner 12/20/23 documented as of this encounter
--- OUTSIDE RECORDS SUMMARY | 2024-12-23 09:06 | XMS_ITS | Encounter Summary ---
Author Organization [employer] ([place], [place], [place], [place]) Address [address] [place] [address] Care Team Providers Care Bookkeeping Clerk Name Role Phone Carlie Huitron APRN Primary Care Provider [phone] Carlie Huitron APRN Primary Care Provider [phone] Reason for Visit * Reason Comments Medication Refill Encounter Details Date Type Department Care Team (Late st Contact Info) Description 04/10/2023 Refill [facility] Neurology - [facility] [address] [facility] [address] [place] [address] Karma Skelton MD [address] [facility] [address] [place] [address] Social History Tobacco Use Types Packs/Day Years [...] Date Yossi rded Speak language other than Greek at home Not on file 04/09/2023 Want [...] on filedocumented in this encounter Care Teams Bookkeeping Clerk Relationship Specialty Start Date End Date Carlie Huitron APRN [address] [facility] [address] [place] [address] PCP - General Nurse Practitioner 01/29/22 08/11/23 Carlie Huitron DELINQU[employer]Y PREVENTION OFFICER [address] [facility] [address] [place] [address] PCP - General Nurse Practitioner 12/20/23 documented as of this encounter
[2024-12-23] MEDS: SODIUM CHLORIDE 0.9% 10ML SYR (RAD ONLY) 10 ML IV (09:20)
[2024-12-23] MEDS: IOPAMIDOL-370 (76%);100ML BOTTLE 75 ML IV (09:20)
--- NOTE | 2024-12-23 09:30 | CT_ITS ---
FINAL REPORT TECHNIQUE: Thin section axial images are obtained through the abdomen and pelvis after intravenous contrast. Reconstruction images were obtained from the axial data. Exam was performed using dose reduction techniques. CLINICAL HISTORY: abdominal pain/blood in stool/fever with Crohn s COMPARISON: None. FINDINGS: LUNG BASES: Lung bases are clear. Heart size is normal. LIVER: Diffuse fatty liver. No focal lesion. GALLBLADDER/BILIARY SYSTEM: Gallbladder is present. No gallstones. No biliary dilatation. SPLEEN: Unremarkable. PANCREAS: Unremarkable. ADRENALS: Unremarkable. KIDNEYS/URETERS/BLADDER: No hydronephrosis, renal mass, or renal stone. Unremarkable urinary bladder. GI TRACT: No small bowel obstruction or dilatation. Normal appendix. No acute colon abnormality. PELVIC ORGANS: There is an IUD within the uterus. The ovaries are unremarkable for age. LYMPH NODES/RETROPERITONEUM/MESENTERY: No lymphadenopathy. No acute vascular abnormality. ABDOMINAL WALL: The abdominal wall is intact. FREE FLUID: No ascites. BONES: No acute osseous abnormality. IMPRESSION: 1. No CT evidence of acute intra-abdominal or intrapelvic abnormality. 2. Mild fatty liver. Authenticated and ERN
== END 2024-12-23 23:59 | disposition home or self-care (01) ==
LOC: RAD 09:04
PROVIDERS: PCP Nurse Practitioner Family; Visit Provider Nurse Practitioner Family
DX: K76.0 Fatty (change of) liver, not elsewhere classified (principal); K50.90 Crohn's disease, unspecified, without complications
CPT/HCPCS: 74177; Q9967